=== PATIENT | male | born 1970 | race American Indian/Alaskan Native ===

== ENCOUNTER 2018-02-16 04:13 | Emergency (ER) | payer OTHER ==
[2018-02-16 05:09] LABS: Basophils % (Auto) 0.4 % (0.0-1.8); Eosinophils # (Auto) 0.3 K/mm3 (0.0-0.4); Hematocrit 44.8 % (35.5-45.6); Hemoglobin 15.1 gm/dl (11.8-15.2); Lymphocytes # (Auto) 1.6 K/mm3 (1.2-5.4); Lymphocytes % (Auto) 22.6 % (13.4-35.0); Mean Corpuscular HGB Conc 34 % (32-34); Mean Corpuscular Hemoglobin 33 pg (28-32); Mean Corpuscular Volume 99 fl (84-94); Monocytes # (Auto) 0.7 K/mm3 (0.0-0.8); Monocytes % (Auto) 10.2 % (0.0-7.3); Platelet Count 182 K/mm3 (140-440); Red Blood Count 4.52 M/mm3 (3.65-5.03); Red Cell Distribution Width 13.6 % (13.2-15.2)
[2018-02-16 05:21] LABS: BUN/Creatinine Ratio 12; Blood Urea Nitrogen 15 mg/dL (9-20); Calcium 9.1 mg/dL (8.4-10.2); Hemolysis Index 15
[2018-02-16 06:28] LABS: Bilirubin,Urine NEG (Negative); Blood,Urine MOD (Negative); Color,Urine Red (Yellow); Protein,Urine <15 mg/dL mg/dL (Negative); Urobilinogen,Urine < 2.0 mg/dL (<2.0)
[2018-02-16] MEDS ORDERED: ATIVAN ONE (08:15)
[2018-02-16] MEDS ORDERED: BENADRYL ONE (08:15)
[2018-02-16] MEDS ORDERED: HALDOL ONE (08:15)
[2018-02-16] MEDS ORDERED: ZOFRAN IV ONE (09:00)
[2018-02-16] MEDS ORDERED: DILAUDID IV ONE (09:00)
--- NOTE | 2018-02-16 09:43 | Cat Scan Report ---
CT ABDOMEN PELVIS WITHOUT CONTRAST: HISTORY: Left flank pain, hematuria. COMPARISON: none. TECHNIQUE: Helical CT in 1.25mm intervals without IV contrast. Sagittal and coronal reconstructions. FINDINGS: Lung bases: Normal. Liver: Normal. Biliary system: Normal. Pancreas: Normal. Spleen: Normal. Kidneys/ureters/bladder: A 6 x 6 x 9 mm calculus is identified in the mid right ureter. There is mild upstream right hydronephrosis. Moderate right perinephric stranding and small perinephric fluid is identified as well. No renal stones are appreciated. The left kidney, left collecting system and bladder are unremarkable. Normal prostate gland. Adrenal glands: Normal. Aorta: Normal. Intestines: Normal. Appendix: Not confidently identified, correlate with surgical history. Pelvic viscera: Normal. Ascites: None. Adenopathy: None. Musculoskeletal: Normal. IMPRESSION: 6 x 6 x 9 mm right ureteral calculus, mildly obstructing.
[2018-02-16] MEDS ORDERED: NORVASC ONE (10:59)
--- NOTE | 2018-02-16 11:05 | Emergency Department Report ---
ED General Adult HPI - General Chief complaint: Back Pain/Injury Stated complaint: LT FLANK PAIN Time Seen by Provider: 02/16/18 08:39 Source: patient Mode of arrival: Ambulatory Limitations: No Limitations - History of Present Illness Initial comments: Patient complains of moderate right flank pain which radiates a bit anteriorly. Symptoms started this morning. He was transported via EMS after being given Toradol. This was of some benefit. He states he's never had a kidney stone before. He is not compliant with his blood pressure medicine. He states that he vomited 1. He's had no fever or chills or dysuria. -: Gradual Location: right (flank) Radiation: abdomen Quality: aching Consistency: now resolved (improved after Toradol) Improves with: none Worsens with: none Associated Symptoms: denies other symptoms - Related Data Previous Rx's Medication Instructions Recorded Last Taken Type HYDROcodone/APAP 7.5-325 [[place] 1 each PO Q6HR PRN #14 tablet 02/16/18 Unknown Rx 7.5/325] Allergies Allergy/AdvReac Type Severity Reaction Status Date / Time No Known Allergies Allergy Verified 02/16/18 08:23 ED Review of Systems ROS: Stated complaint: LT FLANK PAIN Other details as noted in HPI Constitutional: denies: chills, fever Eyes: denies: eye pain, eye discharge, vision change ENT: denies: ear pain, throat pain Respiratory: denies: cough, shortness of breath, wheezing Cardiovascular: denies: chest pain, palpitations Endocrine: no symptoms reported Gastrointestinal: as per HPI, abdominal pain, vomiting. denies: nausea (not ongoing), diarrhea Genitourinary: denies: urgency, dysuria Musculoskeletal: back pain. denies: joint swelling, arthralgia Skin: denies: rash, lesions Neurological: denies: headache, weakness, paresthesias Psychiatric: denies: anxiety, depression Hematological/Lymphatic: denies: easy bleeding, easy bruising ED Past Medical Hx - Past Medical History Previous Medical History?: Yes Hx Hypertension: Yes - Surgical History Past Surgical History?: No - Social History Smoking Status: Former Smoker Substance Use Type: None - Medications Home Medications: Home Medications Medication Instructions Recorded Confirmed Last Taken Type HYDROcodone/APAP 7.5-325 [[place] 1 each PO Q6HR PRN #14 tablet 02/16/18 Unknown Rx 7.5/325] ED Physical Exam - General Limitations: No Limitations General appearance: alert, in no apparent distress - Head Head exam: Present: atraumatic, normocephalic - Eye Eye exam: Present: normal appearance, PERRL, EOMI. Absent: scleral icterus - ENT ENT exam: Present: mucous membranes moist - Neck Neck exam: Present: normal inspection - Respiratory Respiratory exam: Present: normal lung sounds bilaterally. Absent: respiratory distress - Cardiovascular Cardiovascular Exam: Present: regular rate, normal rhythm. Absent: systolic murmur, diastolic murmur, rubs, gallop - GI/Abdominal GI/Abdominal exam: Present: soft, normal bowel sounds. Absent: distended, tenderness, guarding, rebound, rigid - Rectal Rectal exam: Present: deferred - Extremities Exam Extremities exam: Present: normal inspection - Back Exam Back exam: Present: normal inspection. Absent: CVA tenderness (R), CVA tenderness (L) - Neurological Exam Neurological exam: Present: alert, oriented X3, CN II-XII intact. Absent: motor sensory deficit - Psychiatric Psychiatric exam: Present: normal affect, normal mood - Skin Skin exam: Present: warm, dry, intact, normal color. Absent: rash ED Course Vital Signs 02/16/18 02/16/18 02/16/18 04:45 08:05 08:06 Temperature 97.7 F 98.6 F Pulse Rate 69 64 Respiratory 18 20 Rate Blood Pressure 159/106 Blood Pressure 174/100 [Left] O2 Sat by Pulse 98 99 99 Oximetry 02/16/18 02/16/18 02/16/18 08:16 08:30 08:45 Temperature Pulse Rate Respiratory Rate Blood Pressure 185/114 195/112 191/109 Blood Pressure [Left] O2 Sat by Pulse 99 97 95 Oximetry 02/16/18 09:17 Temperature Pulse Rate Respiratory 20 Rate Blood Pressure Blood Pressure [Left] O2 Sat by Pulse Oximetry - Reevaluation(s) Reevaluation #1: Patient is given amlodipine by mouth. He is informed that his stone is large and that treatment by a urologist is necessary. He is referred to [place] [facility]. He is given return criteria. 02/16/18 11:04 ED Medical Decision Making - Lab Data Result diagrams: 02/16/18 04:54 02/16/18 04:54 Laboratory Results - last 24 hr 02/16/18 02/16/18 02/16/18 04:54 04:54 05:13 WBC 7.2 RBC 4.52 Hgb 15.1 Hct 44.8 MCV 99 H MCH 33 H MCHC 34 RDW 13.6 Plt Count 182 Lymph % (Auto) 22.6 [place] % (Auto) 10.2 H Eos % (Auto) 4.0 Baso % (Auto) 0.4 Lymph # 1.6 [place] # 0.7 Eos # 0.3 Baso # 0.0 Seg Neutrophils % 62.8 Seg Neutrophils # 4.5 Sodium 141 Potassium 4.3 Chloride 100.9 Carbon Dioxide 31 H Anion Gap 13 BUN 15 Creatinine 1.3 Estimated GFR > 60 BUN/Creatinine Ratio 12 Glucose 121 H Calcium 9.1 Urine Color Red Urine Turbidity Clear Urine pH 8.0 H Ur Specific [place] 1.001 L Urine Protein <15 mg/dl Urine Glucose (UA) Neg Urine Ketones Neg Urine Blood Mod Urine Nitrite Neg Urine Bilirubin Neg Urine Urobilinogen < 2.0 Ur Leukocyte Esterase Neg Urine WBC (Auto) 1.0 Urine RBC (Auto) 1.0 - Radiology Data Radiology results: report reviewed Critical care attestation.: If time is entered above; I have spent that time in minutes in the direct care of this critically ill patient, excluding procedure time. ED Disposition Clinical Impression: Renal colic on right side, Ureterolithiasis Disposition: TO HOME OR SELFCARE Is pt being admited?: No Does the pt Need Aspirin: No Condition: Stable Instructions: Kidney Stones (ED) Additional Instructions: Return as needed any significant pain and definitely if you develop any fever or chills. There is stone is large and it may have difficulty passing. He must see the urologist for follow-up. See referral. Prescriptions: HYDROcodone/APAP 7.5-325 [[place] 7.5/325] 1 each PO Q6HR PRN #14 tablet PRN Reason: Pain Referrals: PRIMARY CAREMD [Primary Care Provider] - 3-5 Days [facility] [Provider Group] - 2-3 Days Time of Disposition: 11:06
[2018-02-16 11:57] VITALS: BP 164/103
[2018-02-16] MEDS ORDERED: NORVASC PO ONE (11:57)
== END 2018-02-16 12:00 | disposition home or self-care (01) ==
LOC: ED 04:13
DX: N20.2 Calculus of kidney with calculus of ureter (principal); I10 Essential (primary) hypertension; Z87.891 Personal history of nicotine dependence
CPT/HCPCS: 36415; 74176; 80048; 81001; 85025; 96374; 96375; 99284; J1170; J1200; J1630; J2060; J2405